=== PATIENT | male | born 1960 | race African-American/Black ===

== ENCOUNTER 2020-10-28 23:02 | Emergency (ER) | payer SELFPAY ==
[2020-10-28] MEDS ORDERED: SODIUM CHLORIDE 1,000 ML IV STA (23:25)
[2020-10-28 23:38] VITALS: TEMP 97.8; BMI 33.0
[2020-10-28] MEDS ORDERED: INSULIN REGULAR HUMAN 100 UNITS/ML *VIAL IVPUSH ONE (23:40)
[2020-10-29 00:45] LABS: BASO % 1.1 % (0-2.0); EOS % 1.9 % (0-4.5); HEMOGLOBIN 11.4 GM/dL (11.7-16.9); LYMPH % 32.2 % (8-40); MCH 27.9 pg (25.7-33.7); MCHC 32.4 g/dl (32.0-35.9); MEAN CELL VOLUME 86.1 fl (80-96); MEAN PLT VOLUME 8.7 fl (7.5-11.1); NEUT % 54.8 % (42.8-82.8); PLATELET COUNT 594 K/MM3 (134-434); RBC 4.07 M/mm3 (4.00-5.60); RDW 13.9 % (11.9-15.9); WHITE BLOOD COUNT 6.1 K/mm3 (4.0-10.0)
[2020-10-29 01:16] LABS: POTASSIUM 4.9 mmol/L (3.5-5.1)
[2020-10-29 01:18] LABS: ALBUMIN 2.8 g/dl (3.4-5.0); CALCIUM 8.8 mg/dL (8.5-10.1)
[2020-10-29 01:22] LABS: CREATININE 1.3 mg/dL (0.55-1.3)
[2020-10-29 01:23] LABS: TOT PROT 8.4 g/dl (6.4-8.2)
[2020-10-29 03:23] VITALS: BP 157/98; PULSE 89
== END 2020-10-29 03:46 | disposition home or self-care (01) ==
LOC: JER 23:02
PROC: 3E013VG Introduction of Insulin into Subcutaneous Tissue, Percutaneous Approach (ICD-10-PCS; principal; 2020-10-28)
PROC: 3E0337Z Introduction of Electrolytic and Water Balance Substance into Peripheral Vein, Percutaneous Approach (ICD-10-PCS; 2020-10-28)
DX: R73.9 Hyperglycemia, unspecified (principal)
CPT/HCPCS: 36415; 80053; 82010; 82550; 82962; 84484; 85025; 93005; 93010; 99284-25